=== PATIENT | female | born 1980 | race Caucasian/White ===

== ENCOUNTER 2018-10-20 09:59 | Inpatient (IN) ==
[2018-10-20] MEDS ORDERED: ACETAMINOPHEN 325 MG TABLET PO PRN (10:36)
[2018-10-20] MEDS ORDERED: ERYTHROMYCIN INJ 250 MG in SODIUM CHLORIDE 0.9% 100 ML IV SCH (11:00)
[2018-10-20] MEDS ORDERED: GLUCAGON 1 MG VIAL IM PRN (11:36)
[2018-10-20] MEDS ORDERED: DEXTROSE 50% 25 GM/50 ML VIAL IV PRN (11:36)
[2018-10-20] MEDS: METOCLOPRAMIDE 10 MG TABLET PO SCH ×3 (11:53→20:29)
[2018-10-20] MEDS: SODIUM CHLORIDE 0.9% 1,000 ML IV SCH ×2 (12:23→23:11)
[2018-10-20] MEDS ORDERED: MAGNESIUM SULF RIDER 2 GM in PREMIX 1 EACH IV ONE (14:00)
[2018-10-20] MEDS: ONDANSETRON 4 MG/2 ML VIAL IV PRN ×2 (14:18→20:27)
[2018-10-20] MEDS: KETOROLAC 30 MG/1 ML VIAL IV PRN ×2 (14:22→20:27)
[2018-10-20] MEDS: ERYTHROMYCIN ETHYLSUCCINATE 40 MG/ML 100 ML/BOTTLE PO SCH (16:27)
[2018-10-20] MEDS ORDERED: ERYTHROMYCIN BASE 250 MG TABLET PO SCH (16:30)
[2018-10-20 17:00] LABS: Apearance,Urine CLEAR (Clear); Bacteria,Urine Occasional /HPF (Few); Bilirubin,Urine Negative (Negative); Blood, Urine Negative (Negative); Glucose,Urine (UA) 50 mg/dL (Negative); Ketones,Urine 80 mg/dL (Negative); Mucus,Urine Few /LPF (Occasional); Nitrite,Urine Negative (Negative); Protein,Urine Negative; RBC,Urine 3 /HPF (0-4); Squamous Epithelial Cell,Urine Occasional /HPF (0-10); Urine Color Yellow (Yellow); Urine Specific Gravity 1.014 (1.001-1.035); Urine Urobilinogen < 2.0 EU/DL (0.2-1.0); WBC,Urine 2 /HPF (0-6)
[2018-10-20] MEDS ORDERED: SUCRALFATE 1 GM TABLET PO PRN (18:17)
[2018-10-20] MEDS: FAMOTIDINE 20 MG TABLET PO SCH (20:29)
[2018-10-20] MEDS: METOPROLOL SUCCINATE XL 25 MG TABLET PO SCH (20:31)
[2018-10-20] MEDS: DOCUSATE SODIUM 100 MG CAPSULE PO SCH (20:31)
[2018-10-20] MEDS ORDERED: VERAPAMIL SR 180 MG TABLET PO SCH (21:00)
[2018-10-20] MEDS ORDERED: SIMVASTATIN 10 MG TABLET PO SCH (21:00)
[2018-10-20] MEDS ORDERED: NON-FORMULARY MEDICATION (Esomeprazole Magnesium [Nexium] 40 MG) PO SCH (21:00)
[2018-10-21] MEDS: ONDANSETRON 4 MG/2 ML VIAL IV PRN ×2 (02:20→11:03)
[2018-10-21] MEDS: KETOROLAC 30 MG/1 ML VIAL IV PRN (04:52)
[2018-10-21 05:14] LABS: Basophils % 0.7 % (0.0-0.8); Eosinophils % 0.2 % (0.00-10.9); Hematocrit 36.9 VOL% (35.7-47.0); Hemoglobin 12.1 GM/DL (12.0-16.0); Immature Granulocytes % 0.4 %; Immature Granulocytes Absolute 0.02 #; Lymphocytes # 1.3 10*3/uL (1.4-4.0); Lymphocytes % 29.5 % (21.3-54.2); Mean Corpuscular HGB Conc 32.8 GM/DL (32-36); Mean Corpuscular Volume 94.6 FL (87-102); Mean Platelet Volume 11.9 FL (9.6-12.0); Monocytes % 11.2 % (1.7-12.7); Platelet Count 154 T/CUMM (130-400); Red Cell Distribution Width 12.3 % (9.3-17.3); White Blood Count 4.5 T/CUMM (4-12)
[2018-10-21 05:51] LABS: Calcium 7.8 MG/DL (8.5-10.1)
[2018-10-21] MEDS: SODIUM CHLORIDE 0.9% 1,000 ML IV SCH (06:43)
[2018-10-21] MEDS: ERYTHROMYCIN ETHYLSUCCINATE 40 MG/ML 100 ML/BOTTLE PO SCH ×2 (07:30→11:04)
[2018-10-21] MEDS: METOCLOPRAMIDE 10 MG TABLET PO SCH ×2 (07:30→11:04)
[2018-10-21] MEDS: DOCUSATE SODIUM 100 MG CAPSULE PO SCH (08:29)
[2018-10-21] MEDS: METOPROLOL SUCCINATE XL 25 MG TABLET PO SCH (08:29)
[2018-10-21] MEDS: FAMOTIDINE 20 MG TABLET PO SCH (08:29)
[2018-10-21 12:22] VITALS: BP 94/59
== END 2018-10-21 12:48 | disposition home or self-care (01) | DRG 74 ==
LOC: N.5E 10:27
PROVIDERS: ADMIT Internal Medicine; ATTEND Internal Medicine

== ENCOUNTER 2018-12-29 08:15 | Inpatient (IN) ==
[2018-12-29] MEDS ORDERED: ASPIRIN 325 MG TABLET PO STA (08:38)
[2018-12-29] MEDS ORDERED: ONDANSETRON 4 MG/2 ML VIAL IV STA (08:40)
[2018-12-29] MEDS ORDERED: SODIUM CHLORIDE 0.9% 1,000 ML IV STA ×2 (08:40→09:39)
[2018-12-29 08:56] LABS: Basophils % 0.5 % (0.0-0.8); Eosinophils % 0.3 % (0.00-10.9); Hematocrit 39.2 VOL% (35.7-47.0); Hemoglobin 13.2 GM/DL (12.0-16.0); Immature Granulocytes % 0.3 %; Immature Granulocytes Absolute 0.02 #; Lymphocytes # 1.8 10*3/uL (1.4-4.0); Lymphocytes % 27.1 % (21.3-54.2); Mean Corpuscular HGB Conc 33.7 GM/DL (32-36); Mean Corpuscular Volume 94.7 FL (87-102); Mean Platelet Volume 12.4 FL (9.6-12.0); Monocytes % 7.9 % (1.7-12.7); Neutrophils % 63.9 % (38.7-73.9); Platelet Count 165 T/CUMM (130-400); Red Blood Count 4.14 MC/CUMM (3.8-5.5); Red Cell Distribution Width 11.9 % (9.3-17.3); White Blood Count 6.6 T/CUMM (4-12)
[2018-12-29 09:20] LABS: Alanine Aminotransferase 13 U/L (13-56); Albumin 3.8 G/DL (3.4-5.0); Alkaline Phosphatase 54 U/L (45-117); Aspartate Amino Transferase 12 U/L (0-37); Blood Urea Nitrogen 9 MG/DL (7-18); Calcium 8.5 MG/DL (8.5-10.1); Estimated Glom Filtration Rate 77 ML/MIN; Glucose 306 MG/DL (74-106); Osmolality,Calculated 285.7 MOS/KG (273-304); Total Protein 6.4 G/DL (6.4-8.3)
[2018-12-29] MEDS ORDERED: PROMETHAZINE 25 MG/1 ML VIAL IM STA (10:00)
[2018-12-29] MEDS ORDERED: LORazepam 2 MG/1 ML VIAL ONE (11:37)
[2018-12-29] MEDS ORDERED: PROMETHAZINE 25 MG TABLET PO PRN (11:56)
[2018-12-29] MEDS ORDERED: GLUCAGON 1 MG VIAL IM PRN (11:56)
[2018-12-29] MEDS ORDERED: DEXTROSE 10% 25 GM/250 ML BAG IV PRN (11:56)
[2018-12-29] MEDS ORDERED: PROMETHAZINE 25 MG/1 ML VIAL IM PRN (11:56)
[2018-12-29] MEDS: SODIUM CHLORIDE 0.9% 1,000 ML IV SCH ×2 (12:59→17:48)
[2018-12-29] MEDS ORDERED: INFLUENZA VIRUS VACCINE 0.5 ML SYRINGE IM ONE (13:05)
[2018-12-29] MEDS: INSULIN LISPRO 100 UNIT/ML SUBCUT SCH ×2 (13:57→17:34)
[2018-12-29] MEDS ORDERED: GLUCAGON 1 MG VIAL SUBCUT PRN (14:34)
[2018-12-29] MEDS ORDERED: LOPERAMIDE 2 MG CAPSULE PO PRN (14:34)
[2018-12-29] MEDS ORDERED: INSULIN ASPART U SCH (14:45)
[2018-12-29] MEDS: ONDANSETRON 4 MG/2 ML VIAL IV PRN (15:11)
[2018-12-29] MEDS: DICYCLOMINE 10 MG CAPSULE PO SCH ×2 (15:11→20:42)
[2018-12-29] MEDS: ERYTHROMYCIN BASE 250 MG TABLET PO SCH ×2 (15:25→20:43)
[2018-12-29] MEDS ORDERED: NON-FORMULARY MEDICATION (Domperidone 10 MG) PO SCH (16:30)
[2018-12-29] MEDS ORDERED: INSULIN LISPRO 100 UNIT/ML SUBCUT SCH (17:30)
[2018-12-29] MEDS: METOCLOPRAMIDE 10 MG TABLET PO SCH (17:42)
[2018-12-29] MEDS: SUCRALFATE 1 GM TABLET PO SCH ×2 (17:42→20:42)
[2018-12-29 18:48] LABS: Apearance,Urine Slightly Hazy (Clear); Bilirubin,Urine Negative (Negative); Blood, Urine Large mg/dL (Negative); Glucose,Urine (UA) >=500 mg/dL (Negative); Ketones,Urine 80 mg/dL (Negative); Mucus,Urine Occasional /LPF (Occasional); Nitrite,Urine Negative (Negative); Protein,Urine 30 MG/DL; RBC,Urine 1478 /HPF (0-4); Squamous Epithelial Cell,Urine Occasional /HPF (0-10); Urine Color Yellow (Yellow); Urine Specific Gravity 1.015 (1.001-1.035); Urine Urobilinogen < 2.0 EU/DL (0.2-1.0); WBC,Urine 30 /HPF (0-6)
[2018-12-29] MEDS: METOPROLOL SUCCINATE XL 25 MG TABLET PO SCH (20:42)
[2018-12-29] MEDS: ACETAMINOPHEN 325 MG TABLET PO PRN (20:42)
[2018-12-29] MEDS: DOCUSATE SODIUM 100 MG CAPSULE PO SCH (20:42)
[2018-12-29] MEDS: FAMOTIDINE 20 MG TABLET PO SCH (20:42)
[2018-12-29] MEDS: VERAPAMIL SR 180 MG TABLET PO SCH (20:42)
[2018-12-30] MEDS: SODIUM CHLORIDE 0.9% 1,000 ML IV SCH ×4 (00:15→16:55)
[2018-12-30 04:23] LABS: Basophils % 0.5 % (0.0-0.8); Eosinophils % 0.2 % (0.00-10.9); Hematocrit 31.8 VOL% (35.7-47.0); Hemoglobin 10.3 GM/DL (12.0-16.0); Immature Granulocytes % 0.2 %; Immature Granulocytes Absolute 0.01 #; Lymphocytes # 1.3 10*3/uL (1.4-4.0); Lymphocytes % 29.9 % (21.3-54.2); Mean Corpuscular HGB Conc 32.4 GM/DL (32-36); Mean Platelet Volume 12.1 FL (9.6-12.0); Monocytes % 11.1 % (1.7-12.7); Neutrophils % 58.1 % (38.7-73.9); Platelet Count 126 T/CUMM (130-400); Red Blood Count 3.28 MC/CUMM (3.8-5.5); White Blood Count 4.3 T/CUMM (4-12)
[2018-12-30 05:23] LABS: Calcium 7.2 MG/DL (8.5-10.1); Osmolality,Calculated 283.8 MOS/KG (273-304)
[2018-12-30] MEDS: ACETAMINOPHEN 325 MG TABLET PO PRN (07:46)
[2018-12-30] MEDS: ONDANSETRON 4 MG/2 ML VIAL IV PRN ×2 (07:46→14:55)
[2018-12-30] MEDS ORDERED: ALUM/MAG/SIMETH/LIDO VISC 1:1 30 ML BOTTLE PO PRN (08:48)
[2018-12-30] MEDS ORDERED: MAGNESIUM OXIDE 400 MG TABLET PO SCH (09:00)
[2018-12-30] MEDS ORDERED: ALUM/MAG/SIMETH/LIDO VISC 1:1 30 ML BOTTLE PO ONE (09:00)
[2018-12-30] MEDS ORDERED: NORGESTIMATE ETHINYL ESTRADIOL PO SCH (09:00)
[2018-12-30] MEDS: NYSTATIN 500,000 UNIT/5 ML UDCUP SWISH/SWAL SCH ×4 (10:26→21:15)
[2018-12-30] MEDS: FAMOTIDINE 20 MG TABLET PO SCH ×2 (10:28→21:12)
[2018-12-30] MEDS: MAGNESIUM OXIDE 400 MG TABLET PO SCH (10:28)
[2018-12-30] MEDS: DICYCLOMINE 10 MG CAPSULE PO SCH ×3 (10:28→21:12)
[2018-12-30] MEDS: SUCRALFATE 1 GM TABLET PO SCH ×4 (10:28→21:12)
[2018-12-30] MEDS: METOPROLOL SUCCINATE XL 25 MG TABLET PO SCH ×2 (10:28→21:12)
[2018-12-30] MEDS: METOCLOPRAMIDE 10 MG TABLET PO SCH ×3 (10:29→16:55)
[2018-12-30] MEDS: SIMVASTATIN 10 MG TABLET PO SCH (10:29)
[2018-12-30] MEDS: PANTOPRAZOLE 40 MG TABLET PO SCH (10:29)
[2018-12-30] MEDS: ERYTHROMYCIN BASE 250 MG TABLET PO SCH ×3 (10:29→21:12)
[2018-12-30] MEDS: VERAPAMIL SR 180 MG TABLET PO SCH ×2 (10:29→21:12)
[2018-12-30] MEDS: DOCUSATE SODIUM 100 MG CAPSULE PO SCH (10:29)
[2018-12-30] MEDS: ONDANSETRON 4 MG TABLET PO SCH (10:29)
[2018-12-30] MEDS: PARoxetine 10 MG TABLET PO SCH (21:12)
[2018-12-31] MEDS: MAGNESIUM OXIDE 400 MG TABLET PO SCH ×2 (00:38→08:08)
[2018-12-31] MEDS: DOCUSATE SODIUM 100 MG CAPSULE PO SCH ×2 (00:39→08:08)
[2018-12-31] MEDS: ONDANSETRON 4 MG/2 ML VIAL IV PRN ×2 (00:57→08:22)
[2018-12-31] MEDS: ACETAMINOPHEN 325 MG TABLET PO PRN ×2 (00:59→08:07)
[2018-12-31 04:37] LABS: Basophils % 0.5 % (0.0-0.8); Eosinophils % 0.5 % (0.00-10.9); Hematocrit 33.3 VOL% (35.7-47.0); Hemoglobin 10.8 GM/DL (12.0-16.0); Immature Granulocytes % 0.2 %; Immature Granulocytes Absolute 0.01 #; Lymphocytes # 1.4 10*3/uL (1.4-4.0); Lymphocytes % 34.4 % (21.3-54.2); Mean Corpuscular HGB Conc 32.4 GM/DL (32-36); Mean Corpuscular Volume 97.1 FL (87-102); Mean Platelet Volume 12.7 FL (9.6-12.0); Monocytes % 9.8 % (1.7-12.7); Neutrophils % 54.6 % (38.7-73.9); Platelet Count 130 T/CUMM (130-400); Red Blood Count 3.43 MC/CUMM (3.8-5.5); Red Cell Distribution Width 12.4 % (9.3-17.3); White Blood Count 4.1 T/CUMM (4-12)
[2018-12-31 04:55] LABS: Albumin 2.8 G/DL (3.4-5.0); Bilirubin,Total 0.7 MG/DL (0.2-1.0); Calcium 7.6 MG/DL (8.5-10.1); Osmolality,Calculated 282.8 MOS/KG (273-304); Total Protein 5.2 G/DL (6.4-8.3)
[2018-12-31] MEDS: SODIUM CHLORIDE 0.9% 1,000 ML IV SCH (06:13)
[2018-12-31] MEDS ORDERED: NITROGLYCERIN SL 0.4 MG TABLET SL ONE (07:35)
[2018-12-31] MEDS: ERYTHROMYCIN BASE 250 MG TABLET PO SCH (08:07)
[2018-12-31] MEDS: SUCRALFATE 1 GM TABLET PO SCH (08:07)
[2018-12-31] MEDS: DICYCLOMINE 10 MG CAPSULE PO SCH (08:07)
[2018-12-31] MEDS: PARoxetine 10 MG TABLET PO SCH (08:07)
[2018-12-31] MEDS: METOPROLOL SUCCINATE XL 25 MG TABLET PO SCH (08:07)
[2018-12-31] MEDS: NYSTATIN 500,000 UNIT/5 ML UDCUP SWISH/SWAL SCH (08:08)
[2018-12-31] MEDS: METOCLOPRAMIDE 10 MG TABLET PO SCH (08:08)
[2018-12-31] MEDS: FAMOTIDINE 20 MG TABLET PO SCH (08:08)
[2018-12-31] MEDS: ONDANSETRON 4 MG TABLET PO SCH (08:08)
[2018-12-31] MEDS: SIMVASTATIN 10 MG TABLET PO SCH (08:08)
[2018-12-31] MEDS: PANTOPRAZOLE 40 MG TABLET PO SCH (08:08)
[2018-12-31] MEDS: VERAPAMIL SR 180 MG TABLET PO SCH (08:08)
[2018-12-31] MEDS ORDERED: ALPRAZolam 0.25 MG TABLET PO ONE (08:17)
[2018-12-31 10:31] VITALS: BP 109/69
== END 2018-12-31 09:46 | disposition home or self-care (01) | DRG 74 ==
LOC: N.EDINP 08:15 → N.ED 08:15 → N.4E 11:24
PROVIDERS: ADMIT Internal Medicine; ATTEND Internal Medicine